=== PATIENT | female | born 1960 | race Caucasian/White ===

== ENCOUNTER 2018-05-10 00:27 | Inpatient (IN) ==
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
[2018-05-10 02:32] LABS: Basophils % 0.2 %; Eosinophils % 0.1 %; Hematocrit 34.6 % (35.3-44.9); Immature Granulocytes % 0.6 % (0-4); Lymphocytes # 1.5 K/mcL (0.6-4.6); Lymphocytes % 10.6 %; Mean Corpuscular HGB Conc 34.7 g/dL (31.6-35.5); Mean Corpuscular Hemoglobin 31.7 pg (28.0-33.3); Mean Corpuscular Volume 91.3 fL (83.0-100.0); Mean Platelet Volume 9.3 fL (9.4-12.4); Monocytes # 0.5 K/mcL (0.0-1.3); Monocytes % 3.3 %; Neutrophils # 12.3 K/mcL (1.6-8.9); Platelet Count 277 K/mcL (140-400); Red Blood Count 3.79 M/mcL (3.82-4.97); Red Cell Distribution Width 13.4 % (11.5-14.5); Segmented Neutrophils % 85.2 %
[2018-05-10 02:49] LABS: BUN/Creatinine Ratio 21 (6-26); Blood Urea Nitrogen 15 mg/dL (6-20); Calcium 8.3 mg/dL (8.6-10.3); Carbon Dioxide 21 mEq/L (23-29); Chloride 94 mEq/L (98-107); Glucose 130 mg/dL (70-105); Osmolality,Calculated 261 (280-300); Potassium 4.4 mEq/L (3.5-5.1); Sodium 124 mEq/L (136-145); eGFR For African Americans > 60 (> 60); eGFR For Non-African Americans > 60 (> 60)
[2018-05-10] MEDS ORDERED: 0.9 % Sodium Chloride 1,000 ML IVC ONE (04:52)
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
--- NOTE | 2018-05-10 06:55 | Orthopedics Progress Note ---
Date of Encounter: 05/10/18 Time of Encounter: 06:54 Subjective Interval history: Patient seen this morning for injury to left shoulder. I reviewed the x-rays show a displaced comminuted fracture left proximal humerus. Recommendation is for evaluation with CT scan with most likely plan for open reduction internal fixation. I discussed this with the family discussed the surgical plan if CAT scan confirms, discussed risk benefits as well as recovery. Objective Vital signs: Vital Signs Temp Pulse Resp BP Pulse Ox 05/10/18 05:52 98.8 F 95 16 136/85 97 05/10/18 05:49 84 12 115/70 100 05/10/18 03:34 20 122/80 05/10/18 03:17 91 21 124/89 - Labs CBC & BMP: 05/10/18 02:20 05/10/18 02:20 Labs: Abnormal lab results WBC 14.5 K/mcL (4.3-11.1) H 05/10/18 02:20 RBC 3.79 M/mcL (3.82-4.97) L 05/10/18 02:20 Hct 34.6 % (35.3-44.9) L 05/10/18 02:20 MPV 9.3 fL (9.4-12.4) L 05/10/18 02:20 Neutrophils # 12.3 K/mcL (1.6-8.9) H 05/10/18 02:20 Sodium 124 mEq/L (136-145) L 05/10/18 02:20 Chloride 94 mEq/L (98-107) L 05/10/18 02:20 Carbon Dioxide 21 mEq/L (23-29) L 05/10/18 02:20 Glucose 130 mg/dL (70-105) H 05/10/18 02:20 Calculated Osmolality 261 (280-300) L 05/10/18 02:20 Calcium 8.3 mg/dL (8.6-10.3) L 05/10/18 02:20 Consult Discharge Plan - Plan Referrals: Tye Delvalle MD [Primary Care Provider] -
[2018-05-10] MEDS ORDERED: Acetaminophen 325 MG TABLET PO PRN (07:44)
[2018-05-10] MEDS ORDERED: OXYCODONE Oral CONC 10 MG/0.5 ML ORAL.SYG SL PRN (07:44)
[2018-05-10] MEDS ORDERED: Naloxone 0.4 MG/ML INJ IVP PRN (07:44)
[2018-05-10] MEDS ORDERED: *HR* Dextrose 50 % in Water (Syg) 50 ML SYRINGE IVP PRN (07:45)
[2018-05-10] MEDS ORDERED: Dextrose Gel 15 GM/37.5 ML TUBE PO PRN ×2 (07:45)
[2018-05-10] MEDS ORDERED: D5% in Water 1,000 ML IVC PRN (07:45)
[2018-05-10] MEDS ORDERED: 0.9 % Sodium Chloride 1,000 ML IVC SCH (08:00)
[2018-05-10] MEDS: OXYCODONE Oral CONC 10 MG/0.5 ML ORAL.SYG SL PRN ×3 (08:30→21:42)
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
[2018-05-10] MEDS ORDERED: ALPRAZolam 0.5 MG TABLET PO PRN (08:43)
[2018-05-10] MEDS ORDERED: ALPRAZolam 0.5 MG TABLET PO SCH (09:00)
[2018-05-10 09:50] LABS: Estimated Average Glucose 134 mg/dl; Hemoglobin A1C 6.3 %
[2018-05-10] MEDS: Insulin LISPRO 300 UNITS/3 ML VIAL SQ SCH ×2 (11:32→18:18)
[2018-05-10] MEDS: *HR* FentaNYL (PF) 100 MCG/2 ML VIAL IVP PRN ×2 (11:37→17:45)
[2018-05-10] MEDS: *HR* Heparin 5,000 UNIT/ML VIAL SQ SCH (17:44)
[2018-05-10] MEDS: Ondansetron 4 MG/2 ML VIAL IVP PRN (17:44)
--- NOTE | 2018-05-10 20:23 | Anesthesia Evaluation PreOp ---
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: Other (Anxiety, chronic back pain) Other Medical History: Diabetes Type II (None after weight loss, currently slightly elevated, probably 2/2 stress, HbA1c 6.3.), Thyroid, GERD (Significant , controlled) Anesthesia History: No Prior Anesthetic Complications, Past Anesthesia ( Bariatric surgery, partial hysterectomy, lumbar discectomy, lumbar fusion, ankle sx) Alcohol Use: none Drug use: none Medications and Allergies Amitriptyline [Elavil] 100 mg PO HS 11/03/17 [History] Atorvastatin Calcium [Lipitor] 20 mg PO DAILY 11/03/17 [History] Levothyroxine [Synthroid] [place] [address]/03/17 [History] Pantoprazole Sodium [Protonix] 40 mg PO DAILY 11/03/17 [History] ALPRAZolam [Xanax 1 MG Tablet] 1 mg PO TID PRN 05/10/18 [History] Zolpidem Tartrate [Ambien Cr] 12.5 mg PO HS PRN 05/10/18 [History] 3 Allergy/AdvReac Type Severity Reaction Status Date / Time No Known Allergies Allergy Verified 11/03/17 07:02 - Meds/Allergy Pre-op Review Medications Reviewed: Yes Allergies Reviewed: Yes Beta Blockers on Current Med List: No Anesthesia Results - Labs 05/10/18 02:20 05/10/18 12:02 Laboratory Tests 05/10/18 05/10/18 02:20 02:20 Potassium 4.4 Chloride 94 L Carbon Dioxide 21 L Creatinine 0.73 Glucose 130 H Hemoglobin A1c 6.3 H Calcium 8.3 L Anesthesia Exam Height 1.75 m Weight 82 kg BMI 27 Vital Signs/O2 Sat/Glucose, Most Recent Temp Pulse Resp BP Pulse Ox 98.8 F 110 18 145/84 95 05/10/18 19:32 05/10/18 19:32 05/10/18 19:32 05/10/18 19:32 05/10/18 19:32 Blood Glucose* 94 NPO (# of Hours): Advised NPO after MN - HEENT Mallampati: I Teeth: Normal Oral Opening: Greater than 3 - TUNNEL WORKER LOC: Oriented TUNNEL WORKER Motor: Normal RUE, Normal LUE, Normal RLE, Normal LLE, Normal Face - Cardiac Rhythm: Regular - Pulmonary Breath Sounds: bilateral Clear Anesthesia Assess/Plan ASA Score: 3 Modified Kush Scale for Level of Consciousness: Cooperative, oriented, and tranquil Anesthetic Plan: General, Regional (For post operative pain control) Monitoring Plan: Standard Monitors Recovery Plan: PACU Anes Supervising Prov Stmt: Patient informed and consented. Risks, benefits, and alternatives discussed. Patient wishes to proceed.
[2018-05-10] MEDS ORDERED: LIPITOR PO SCH (21:00)
[2018-05-10] MEDS ORDERED: Insulin LISPRO 300 UNITS/3 ML VIAL SQ SCH (21:00)
--- NOTE | 2018-05-10 21:33 | Event Note ---
Date of Encounter: 05/10/18 Time of Encounter: 21:31 Patient was seen, comfortable in bed. CT scan has been reviewed by . Recommending surgery - plan discussed with patient. Surgical consent reviewed and signed. Plan: Proximal humerus ORIF - 05/11 AM. NPO after midnight. Continue in sling. Continue with pain control. Appt made and faxed to [facility]. Patient would like to stay
[2018-05-11] MEDS: Ondansetron 4 MG/2 ML VIAL IVP PRN (00:15)
[2018-05-11] MEDS: *HR* FentaNYL (PF) 100 MCG/2 ML VIAL IVP PRN (00:15)
[2018-05-11] MEDS: Insulin LISPRO 300 UNITS/3 ML VIAL SQ SCH ×4 (00:29→16:23)
[2018-05-11 01:40] LABS: Basophils % 0.3 %; Eosinophils % 0.5 %; Hematocrit 37.1 % (35.3-44.9); Hemoglobin 12.6 g/dL (11.5-15.4); Immature Granulocytes % 0.3 % (0-4); Lymphocytes # 1.4 K/mcL (0.6-4.6); Lymphocytes % 24.4 %; Mean Corpuscular Volume 91.4 fL (83.0-100.0); Mean Platelet Volume 10.5 fL (9.4-12.4); Monocytes # 0.7 K/mcL (0.0-1.3); Monocytes % 11.7 %; Platelet Count 199 K/mcL (140-400); Red Blood Count 4.06 M/mcL (3.82-4.97); Red Cell Distribution Width 13.6 % (11.5-14.5); Segmented Neutrophils % 62.8 %
[2018-05-11 01:42] LABS: Neutrophils # 3.6 K/mcL (1.6-8.9)
[2018-05-11 01:57] LABS: BUN/Creatinine Ratio 16 (6-26); Blood Urea Nitrogen 13 mg/dL (6-20); Calcium 9.1 mg/dL (8.6-10.3); Carbon Dioxide 22 mEq/L (23-29); Chloride 99 mEq/L (98-107); Glucose 107 mg/dL (70-105); Osmolality,Calculated 271 (280-300); Potassium 4.3 mEq/L (3.5-5.1); Sodium 130 mEq/L (136-145); eGFR For African Americans > 60 (> 60); eGFR For Non-African Americans > 60 (> 60)
[2018-05-11] MEDS: *HR* Heparin 5,000 UNIT/ML VIAL SQ SCH ×2 (04:32→16:33)
[2018-05-11] MEDS: OXYCODONE Oral CONC 10 MG/0.5 ML ORAL.SYG SL PRN ×2 (05:54→20:48)
--- NOTE | 2018-05-11 06:14 | Orthopedics Progress Note ---
Date of Encounter: 05/11/18 Time of Encounter: 06:13 Subjective Interval history: Patient seen this morning CT scan results reviewed plan for open reduction internal fixation reviewed all questions answered. We reviewed the risks and benefits as well as recovery. All questions were answered. The patient agreed to this treatment plan and appeared to understand the plan is reviewed. Objective Vital signs: Vital Signs Temp Pulse Resp BP Pulse Ox 05/11/18 03:08 98.7 F 95 14 98/65 95 05/11/18 00:09 98.8 F 94 18 117/79 97 05/10/18 19:32 98.8 F 110 18 145/84 95 05/10/18 15:57 99.0 F 99 18 114/71 99 05/10/18 10:37 98.6 F 79 18 136/75 98 05/10/18 08:42 100 05/10/18 07:04 97.7 F 63 15 134/78 100 Intake and Output 05/10/18 05/10/18 05/11/18 15:59 23:59 07:59 Intake Total 490 / 490 610 / 610 0 / 0 Output Total 0 / 0 Balance 490 / 490 610 / 610 0 / 0 Intake: Oral 490 / 490 610 / 610 0 / 0 Output: Urine 0 / 0 Other: Meal Lunch Dinner Percent of Meal Consumed 30% 30% # Voids 1 1 1 Weight 82.1 kg Blood Glucose* 94 70 118 Patient Weight 05/11/18 23:59 Weight 82.1 kg - Labs CBC & BMP: 05/11/18 00:52 05/11/18 00:52 Labs: Abnormal lab results Sodium 130 mEq/L (136-145) L 05/11/18 00:52 Carbon Dioxide 22 mEq/L (23-29) L 05/11/18 00:52 Glucose 107 mg/dL (70-105) H 05/11/18 00:52 POC Glucose 167 mg/dL (70-99) H 05/10/18 17:46 Hemoglobin A1c 6.3 % (-5.6) H 05/10/18 02:20 Calculated Osmolality 271 (280-300) L 05/11/18 00:52 Consult Discharge Plan - Plan Referrals: Tye Delvalle MD [Primary Care Provider] - Prescriptions: OxyCODONE Immed Rel [Roxicodone 5 MG] 5 mg PO Q6HR PRN 7 Days #28 tablet PRN Reason: Severe Pain
[2018-05-11] MEDS ORDERED: Ondansetron 4 MG/2 ML VIAL ONE (07:05)
[2018-05-11] MEDS ORDERED: Lidocaine -MPF 4% 5 ML AMPUL ONE (07:05)
[2018-05-11] MEDS ORDERED: Dexamethasone 4 MG/ML VIAL ONE (07:05)
[2018-05-11] MEDS ORDERED: *HR* Succinylcholine 200 MG/10 ML VIAL IVP ONE (07:05)
[2018-05-11] MEDS ORDERED: *HR* FentaNYL (PF) 100 MCG/2 ML VIAL ONE ×2 (07:05→07:23)
[2018-05-11] MEDS ORDERED: *HR* Propofol 200 MG/20 ML VIAL IVP ONE (07:05)
[2018-05-11] MEDS ORDERED: Lidocaine -MPF 2% 2 ML VIAL ONE ×2 (07:05)
[2018-05-11] MEDS ORDERED: *HR* Midazolam HCl 2 MG/2 ML VIAL ONE ×2 (07:05→07:23)
[2018-05-11] MEDS ORDERED: Bupivacaine/Clonidine Syringe 1 EACH SYRINGE ONE (07:08)
[2018-05-11] MEDS ORDERED: ROPIVACAINE HCL/PF 0.5% 30 ML VIAL ONE (07:08)
[2018-05-11] MEDS ORDERED: Albuterol 2.5 MG/3 ML NEBULIZER IH ONE (07:35)
[2018-05-11] MEDS ORDERED: Naloxone 0.4 MG/ML INJ IVP PRN ×3 (07:35→09:31)
[2018-05-11] MEDS ORDERED: Ondansetron 4 MG/2 ML VIAL IVP ONE ×2 (07:35→09:31)
[2018-05-11] MEDS ORDERED: *HR* HYDROmorphone 2 MG TABLET PO PRN ×2 (07:35→09:31)
[2018-05-11] MEDS ORDERED: *HR* OxyCODONE Immed Rel 5 MG TABLET PO PRN (07:35)
[2018-05-11] MEDS ORDERED: *HR* Meperidine 25 MG/ML SYRINGE IVP PRN (07:35)
[2018-05-11] MEDS ORDERED: *HR* Promethazine 25 MG/ML VIAL IVP PRN (07:35)
--- NOTE | 2018-05-11 07:35 | Anesthesia Procedures ---
Date of Encounter: 05/11/18 Time of Encounter: :33 Procedures: Anesthesia - Nerve Block Procedure Date: 05/11/18 Time: 07:33 Surgical Procedure: left proximal humerus orif Checklist: Correct Patient Identifier, Correct procedure, History checked Correct side: Left Blood Thinner: No Monitor Applied: EKG, BP, Pulse Oximetry Supplemental Oxygen via Nasal Cannula (L/min): 2 Sedation: Versed (mg): 4 Sedation: Fentanyl (mcg): 200 Indication: Post Op Analgesia (request per surgeon) Pre-op Neuro Deficits: No Block Type: Supraclavicular, Other (icb) Catheter placed: No Sterile Technique: Yes Ultrasound used: Yes Anatomy identified: Yes Visual spread of Local: Yes Neuro Stimulation: No Blood on Needle Aspiration: No Smooth Injection of Local: Yes Pain with Injection of Local: No Prep: Chlorhexadine Needle: 22 x 50 mm Stimuplex Local: 0.25% Bupivicaine w/Clonidine 20 mcg/cc (for icb), Ropivacaine (0.5%) Volume (cc): 30 Number of Attempts: 1 Complications: None/effective block Vitals: Vital Signs/O2 Sat/Glucose, Most Current Pulse Resp BP Pulse Ox 05/11/18 07:32 105 16 109/85 97 05/11/18 07:15 101 18 107/84 97 Comments: pt tolerated procedure well. no complications. vss.
[2018-05-11] MEDS ORDERED: Ringers Solution, Lactated 1,000 ML IVC SCH ×3 (07:45→09:31)
[2018-05-11] MEDS ORDERED: *HR* PHENYLEPHRINE 1,000 MCG/10 ML SYRINGE IVP ONE ×2 (08:01→08:19)
--- NOTE | 2018-05-11 08:43 | Orthopedic Operative Note ---
Date of procedure: 05/11/18 Pre-op diagnosis: Displaced left proximal humerus fracture Post-op diagnosis: same Procedure: Procedure: Left open reduction internal fixation proximal humerus Estimated blood loss: 50 cc Hardware: Arthrex 3 hole proximal humeral locking plate, 1 3.5 cortical screws , 7 3.5 Locking screws, one Arthrex cerclage fiber tape Procedural Notes: Displaced comminuted fracture Operative procedure: The patient was brought to the operating room and placed on the operating room table. After general anesthesia was administered the operative arm was prepped and draped in the sterile surgical fashion The patient received IV antibiotics prior to skin incision. A standard extended deltopectoral approach was made to the humerus, the incision is made to the skin and subcutaneous tissue. Hemostasis was obtained with Bovie cautery. Using careful blunt dissection the deltopectoral interval was developed, exposing the fracture site. Using fluoroscopic assistance a Arthrex 3 hole proximal humeral locking plate was approximated to the anterior lateral surface was fixed distally in compression with one 3.5 cortical screw. It was fixed proximally with 5 3.5 locking screws. Fixation was completed with distal fixation with 2 3.5 locking screws. Fixation was augmented with one Arthrex cerclage fiber tape. Position of the hardware as well as fracture reduction found to be acceptable on fluoroscopic exam evaluation. The wound was irrigated the deltopectoral closed with a running #1 PDS suture case tissues irrigated and closed deep with 0 PDS suture superficially with 0 PDS suture was closed with Dermabond patient was sterile dressing and brace. The patient was extubated, and then transferred to the recovery room in stable condition. Anesthesia: GETA Surgeon: Anthony Francis Was there an multimedia assistant present: Yes Esl Instructional Assistant: Macy Fields Estimated blood loss (cc): 50 Condition: stable Disposition: PACU
--- NOTE | 2018-05-11 09:27 | Anesthesia Evaluation Post Op ---
Date of Encounter: 05/11/18 Time of Encounter: 09:26 - Vital Signs Vital Signs: Vital Signs/O2 Sat/Glucose, Most Recent Temp Pulse Resp BP Pulse Ox 99.1 F 96 18 110/72 96 05/11/18 09:00 05/11/18 09:10 05/11/18 09:10 05/11/18 09:10 05/11/18 09:10 Blood Glucose* 113 - Lungs Lungs: Clear Ascult./Percussion - Airway Airway: Non-obstructed - Cardiovascular Regular Rate - Mental Status Mental Status: Alert & Oriented, Answers Appropriately - Pain Pain Scale: 0 Pain Scale used: Numeric (1 - 10) - Nausea Vomiting Nausea Vomiting: Not Present - Hydration Hydration: NPO - Discharge PostOp Status: Transfer Patient to floor
[2018-05-11] MEDS ORDERED: OXYCODONE Oral CONC 10 MG/0.5 ML ORAL.SYG SL PRN (09:31)
[2018-05-11] MEDS ORDERED: 0.9 % Sodium Chloride 1,000 ML IVC SCH (09:31)
[2018-05-11] MEDS ORDERED: Dextrose Gel 15 GM/37.5 ML TUBE PO PRN ×2 (09:31)
[2018-05-11] MEDS ORDERED: D5% in Water 1,000 ML IVC PRN (09:31)
[2018-05-11] MEDS ORDERED: MOM Conc 10 ML UD.LIQ PO PRN (09:31)
[2018-05-11] MEDS ORDERED: Acetaminophen 325 MG TABLET PO PRN (09:31)
[2018-05-11] MEDS ORDERED: Temazepam 15 MG CAPSULE PO PRN (09:31)
[2018-05-11] MEDS ORDERED: Ondansetron 4 MG/2 ML VIAL IVP PRN ×2 (09:31)
[2018-05-11] MEDS ORDERED: *HR* Dextrose 50 % in Water (Syg) 50 ML SYRINGE IVP PRN (09:31)
[2018-05-11] MEDS ORDERED: *HR* FentaNYL (PF) 100 MCG/2 ML VIAL IVP PRN (09:31)
[2018-05-11] MEDS ORDERED: ALPRAZolam 0.5 MG TABLET PO PRN (09:31)
[2018-05-11] MEDS ORDERED: Sennosides 8.6 MG TABLET PO PRN (09:31)
[2018-05-11] MEDS ORDERED: Insulin LISPRO 300 UNITS/3 ML VIAL SQ SCH ×2 (12:00→21:00)
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
[2018-05-12 01:35] LABS: Hemoglobin 11.1 g/dL (11.5-15.4)
[2018-05-12 01:50] LABS: BUN/Creatinine Ratio 17 (6-26); Blood Urea Nitrogen 14 mg/dL (6-20); Calcium 9.5 mg/dL (8.6-10.3); Carbon Dioxide 25 mEq/L (23-29); Chloride 101 mEq/L (98-107); Glucose 126 mg/dL (70-105); Magnesium 2.2 mg/dL (1.6-2.6); Osmolality,Calculated 280 (280-300); Potassium 4.4 mEq/L (3.5-5.1); Sodium 134 mEq/L (136-145); eGFR For African Americans > 60 (> 60); eGFR For Non-African Americans > 60 (> 60)
[2018-05-12] MEDS: OXYCODONE Oral CONC 10 MG/0.5 ML ORAL.SYG SL PRN ×2 (01:58→06:05)
[2018-05-12] MEDS: *HR* Heparin 5,000 UNIT/ML VIAL SQ SCH (06:05)
[2018-05-12] MEDS: Insulin LISPRO 300 UNITS/3 ML VIAL SQ SCH ×2 (07:47→12:05)
[2018-05-12] MEDS: *HR* OxyCODONE Immed Rel 5 MG TABLET PO PRN ×2 (07:48→11:53)
--- NOTE | 2018-05-12 08:28 | Orthopedics Progress Note ---
Date of Encounter: 05/12/18 Time of Encounter: 08:27 Subjective Interval history: Patient was seen this morning doing definitely agitated, increased pain since block wore off. Afebrile vital signs stable. Operative extremity: Neurovascularly intact Dressing clean dry and intact patient with some swelling no erythema Calves nontender Assessment and plan: Continue with postoperative care will consult anesthesia her possible repeat nerve block, patient understands that this is a short lived pain reliever, prescribed Xanax 0.25 mg to treat anxiety. . Objective Vital signs: Vital Signs Temp Pulse Resp BP Pulse Ox 05/12/18 08:12 98 05/12/18 07:26 98.4 F 91 17 148/82 98 05/12/18 02:56 98.4 F 93 20 136/90 97 05/11/18 23:00 98.5 F 110 20 146/77 98 05/11/18 19:43 98.8 F 66 18 104/71 97 05/11/18 15:45 97.7 F 90 19 97/65 95 05/11/18 13:36 97.7 F 109 21 102/71 95 05/11/18 11:30 98.3 F 91 21 99/68 96 05/11/18 10:35 98.4 F 95 16 110/72 96 05/11/18 10:00 96 16 106/73 97 05/11/18 09:30 97.9 F 93 18 101/68 95 05/11/18 09:20 97 16 108/78 96 05/11/18 09:10 96 18 110/72 96 05/11/18 09:00 99.1 F 99 18 105/71 97 Intake and Output 05/11/18 05/12/18 05/12/18 23:59 07:59 15:59 Intake Total 900 / 900 700 / 700 Output Total 0 / 0 Balance 900 / 900 700 / 700 Intake: IV Fluids 100 / 100 Ancef 2,000 MG In 0.9 % Sodium 100 / 100 Chloride 100 ML @ 200 mls/hr IVPB Q8HR L[facility] Rx#:[id number] Oral 800 / 800 700 / 700 Output: Urine 0 / 0 Other: # Voids 1 2 Weight 81.8 kg Blood Glucose* 104 93 Patient Weight 05/12/18 23:59 Weight 81.8 kg - Labs CBC & BMP: 05/12/18 01:11 05/12/18 01:11 Labs: Abnormal lab results Hgb 11.1 g/dL (11.5-15.4) L D 05/12/18 01:11 Hct 33.0 % (35.3-44.9) L 05/12/18 01:11 Sodium 134 mEq/L (136-145) L 05/12/18 01:11 Glucose 126 mg/dL (70-105) H 05/12/18 01:11 POC Glucose 104 mg/dL (70-99) H 05/11/18 20:45 Hemoglobin A1c 6.3 % (-5.6) H 05/10/18 02:20 - VTE Documentation of Mechanical Device: Venous foot pump, device Consult Discharge Plan - Plan Referrals: Tye Delvalle MD [Primary Care Provider] -
[2018-05-12 11:39] VITALS: BP 131/75
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
== END 2018-05-12 15:10 | disposition home or self-care (01) | DRG 493 ==
LOC: 3NENU 00:27 → EMEROO 00:27 → 3NENU 05:49 → SUATTDRO 05-11 06:14
PROVIDERS: ADMIT Internal Medicine Nephrology; ATTEND Internal Medicine

== ENCOUNTER 2021-06-06 07:04 | Observation (INO) ==
[2021-06-06] MEDS ORDERED: Ondansetron 4 MG/2 ML VIAL IVP ONE (08:26)
[2021-06-06] MEDS ORDERED: *HR* FentaNYL (PF) 100 MCG/2 ML VIAL IVP STA (08:26)
[2021-06-06] MEDS ORDERED: Ondansetron 4 MG/2 ML VIAL IVP PRN ×2 (08:47→20:12)
[2021-06-06] MEDS ORDERED: Melatonin 3 MG TABLET PO PRN ×2 (08:47→20:12)
[2021-06-06] MEDS ORDERED: Naloxone 0.4 MG/ML INJ IVP PRN ×2 (08:47→20:12)
[2021-06-06] MEDS ORDERED: Dextrose Gel 15 GM/37.5 ML TUBE PO PRN ×4 (08:53→20:12)
[2021-06-06] MEDS ORDERED: D5% in Water 1,000 ML IVC PRN ×2 (08:53→20:12)
[2021-06-06] MEDS ORDERED: *HR* Dextrose 50 % in Water (Vial) 50 ML VIAL IVP PRN ×2 (08:53→20:12)
[2021-06-06 08:56] LABS: Hematocrit 36.3 % (35.3-44.9); Mean Corpuscular HGB Conc 33.1 g/dL (31.6-35.5); Mean Corpuscular Hemoglobin 31.3 pg (28.0-33.3); Mean Corpuscular Volume 94.8 fL (83.0-100.0); Mean Platelet Volume 9.7 fL (9.4-12.4); Platelet Count 304 K/mcL (140-400); Red Blood Count 3.83 M/mcL (3.82-4.97); Red Cell Distribution Width 13.4 % (11.5-14.5); White Blood Count 7.8 K/mcL (4.3-11.1)
[2021-06-06] MEDS ORDERED: 0.9 % Sodium Chloride 1,000 ML IVC SCH ×2 (09:00→20:12)
[2021-06-06 09:16] LABS: BUN/Creatinine Ratio 15 (6-26); Blood Urea Nitrogen 13 mg/dL (8-23); Calcium 8.9 mg/dL (8.6-10.3); Carbon Dioxide 26 mEq/L (23-29); Chloride 98 mEq/L (98-107); Glucose 93 mg/dL (70-105); Osmolality,Calculated 274 (280-300); Potassium 3.8 mEq/L (3.5-5.1); Sodium 132 mEq/L (136-145); eGFR For African Americans > 60 (> 60); eGFR For Non-African Americans > 60 (> 60)
[2021-06-06 09:41] LABS: INR 0.9; Prothrombin Time 10.7 Seconds (9.4-12.1)
[2021-06-06] MEDS ORDERED: Insulin LISPRO 300 UNITS/3 ML VIAL SUBQ SCH (12:00)
[2021-06-06] MEDS ORDERED: *HR* OxyCODONE Immed Rel 5 MG TABLET PO PRN ×2 (14:41→20:12)
[2021-06-06] MEDS ORDERED: *HR* FentaNYL (PF) 100 MCG/2 ML VIAL IVP PRN ×2 (14:41→20:12)
[2021-06-06] MEDS ORDERED: Lidocaine/EPI 1:200k 1% PF 10 ML VIAL ONE (15:55)
[2021-06-06] MEDS ORDERED: Lidocaine/EPI 1:100k 1% 50 ML VIAL ONE (15:56)
[2021-06-06] MEDS ORDERED: *HR* FentaNYL (PF) 100 MCG/2 ML VIAL ONE ×2 (15:59→16:54)
[2021-06-06] MEDS ORDERED: *HR* Propofol 200 MG/20 ML VIAL IVP ONE (16:00)
[2021-06-06] MEDS ORDERED: *HR* Midazolam HCl 2 MG/2 ML VIAL ONE (16:00)
[2021-06-06] MEDS ORDERED: Ondansetron 4 MG/2 ML VIAL ONE (16:03)
[2021-06-06] MEDS ORDERED: Lidocaine -MPF 4% 5 ML AMPUL ONE (16:03)
[2021-06-06] MEDS ORDERED: *HR* Succinylcholine 200 MG/10 ML VIAL IVP ONE (16:03)
[2021-06-06] MEDS ORDERED: Lidocaine -MPF 2% 2 ML VIAL ONE (16:03)
[2021-06-06] MEDS ORDERED: ceFAZolin 2,000 MG in Water for inj. (sterile) 20 ML IVP ONE (16:23)
[2021-06-06] MEDS ORDERED: *HR* Rocuronium Bromide 50 MG/5 ML VIAL ONE (16:26)
[2021-06-06] MEDS ORDERED: Acetaminophen IV 1,000 MG/100 ML BAG IVPB ONE (17:04)
[2021-06-06] MEDS ORDERED: *HR* HYDROMORPHONE 2 MG/ML VIAL ONE (17:20)
[2021-06-06] MEDS: *HR* HYDROmorphone PF 0.5 MG/0.5 ML SYRINGE IVP PRN ×2 (17:49→18:04)
[2021-06-06] MEDS ORDERED: CeFAZolin Syr 2,000MG/20 ML 2,000 MG/20 ML SYRINGE IVPB ONE (19:00)
[2021-06-06] MEDS ORDERED: Ringers Solution, Lactated 1,000 ML ONE (19:22)
[2021-06-06] MEDS ORDERED: *HR* HYDROmorphone PF 0.5 MG/0.5 ML SYRINGE IVP PRN (20:12)
[2021-06-06] MEDS: ceFAZolin 2,000 MG in 0.9 % Sodium Chloride 100 ML IVPB SCH (23:34)
[2021-06-07] MEDS: Insulin LISPRO 300 UNITS/3 ML VIAL SUBQ SCH ×3 (00:36→12:46)
[2021-06-07 05:24] LABS: Hematocrit 34.5 % (35.3-44.9); Hemoglobin 11.7 g/dL (11.5-15.4); Mean Corpuscular HGB Conc 33.9 g/dL (31.6-35.5); Mean Corpuscular Volume 94.3 fL (83.0-100.0); Mean Platelet Volume 10.1 fL (9.4-12.4); Platelet Count 289 K/mcL (140-400); Red Blood Count 3.66 M/mcL (3.82-4.97); Red Cell Distribution Width 13.4 % (11.5-14.5)
[2021-06-07 05:45] LABS: BUN/Creatinine Ratio 15 (6-26); Blood Urea Nitrogen 13 mg/dL (8-23); Calcium 8.7 mg/dL (8.6-10.3); Carbon Dioxide 26 mEq/L (23-29); Chloride 100 mEq/L (98-107); Glucose 125 mg/dL (70-105); Osmolality,Calculated 278 (280-300); Potassium 4.2 mEq/L (3.5-5.1); Sodium 133 mEq/L (136-145); eGFR For African Americans > 60 (> 60); eGFR For Non-African Americans > 60 (> 60)
[2021-06-07] MEDS ORDERED: ALPRAZolam 1 MG TABLET PO PRN (06:00)
[2021-06-07 07:53] VITALS: O2SAT 99
[2021-06-07 10:29] VITALS: BP 147/79; PULSE 92; TEMP 98.3
[2021-06-07] MEDS: ceFAZolin 2,000 MG in 0.9 % Sodium Chloride 100 ML IVPB SCH (11:24)
[2021-06-07] MEDS ORDERED: Ketorolac 30 MG/ML VIAL IVP ONE (15:24)
[2021-06-08] MEDS ORDERED: atenoloL 50 MG TABLET PO SCH (09:00)
[2021-06-08] MEDS ORDERED: valACYclovir 500 MG TABLET PO SCH (09:00)
== END 2021-06-07 18:12 | disposition home or self-care (01) ==
LOC: CDU 07:04 → EMEROOARM 07:04 → SUATTDRO 08:46 → CDU 10:24 → 3NENU 13:53
PROVIDERS: ADMIT Family Medicine; ATTEND Internal Medicine

== ENCOUNTER 2021-08-02 23:52 | Observation (INO) ==
[2021-08-02] MEDS ORDERED: 0.9 % Sodium Chloride 1,000 ML IVC ONE (23:58)
[2021-08-03] MEDS ORDERED: D5% in Lactated Ringers 1,000 ML IVC SCH (00:15)
[2021-08-03 00:19] LABS: VBG HCO3 23 mEq/L (21-27); VBG PCO2 48 mmHg (41-51); VBG PH 7.28 pH Units (7.32-7.42); VBG PO2 64 mmHg (25-50)
[2021-08-03 00:29] LABS: Bacteria,Urine Few per hpf (None-Few); Bilirubin,Urine Negative (Negative); Blood,Urine Negative (Negative); Clarity,Urine Clear (Clear); Color,Urine Colorless (Yellow); Glucose,Urine (UA) Normal (Normal); Ketones,Urine Negative (Negative); Leukocyte Esterase,Urine Negative (Negative); Nitrite,Urine Positive (Negative); Protein,Urine Negative (Neg-Trace); RBC,Urine 0-3 per hpf (0-3); Specific Gravity,Urine 1.005 (1.010-1.025); Squamous Epithelial Cell,Urine Few per hpf (None-Few); Urobilinogen,Urine Normal (Normal); WBC,Urine 0-3 per hpf (0-3)
[2021-08-03 00:29] LABS: Alanine Aminotransferase 16 Units/L (7-52); Albumin 4.2 g/dL (3.5-5.7); Albumin/Globulin Ratio 1.4 (1.1-2.2); Alkaline Phosphatase 121 Units/L (34-104); Aspartate Amino Transferase 21 Units/L (13-39); BUN/Creatinine Ratio 19 (6-26); Bilirubin,Direct 0.1 mg/dL (0.0-0.2); Bilirubin,Indirect 0.3 mg/dL (0.0-1.0); Bilirubin,Total 0.4 mg/dL (0.3-1.0); Blood Urea Nitrogen 16 mg/dL (8-23); Calcium 8.5 mg/dL (8.6-10.3); Carbon Dioxide 19 mEq/L (23-29); Chloride 99 mEq/L (98-107); Ethanol 204 mg/dL (Less than 10); Globulin 3.1 g/dL (2.4-3.5); Glucose 90 mg/dL (70-105); Osmolality,Calculated 271 (280-300); Potassium 3.7 mEq/L (3.5-5.1); Sodium 130 mEq/L (136-145); Total Protein 7.3 g/dL (6.4-8.9); eGFR For African Americans > 60 (> 60); eGFR For Non-African Americans > 60 (> 60)
[2021-08-03 00:40] LABS: Amphetamine Screen,Urine Negative ng/mL (Cutoff=1000); Barbiturate Screen,Urine Negative ng/mL (Cutoff=200); Benzodiazepines Screen,Urine Positive ng/mL (Cutoff=200); Cannabinoid Screen,Urine Negative ng/mL (Cutoff = 50); Cocaine Screen,Urine Negative ng/mL (Cutoff= 300); Opiate Screen,Urine Negative ng/mL (Cutoff=300); Phencyclidine Screen,Urine Negative ng/mL (Cutoff=25)
[2021-08-03 00:41] LABS: Basophils # 0.1 K/mcL (0.0-0.2); Basophils % 0.6 %; Eosinophils # 0.2 K/mcL (0.0-0.6); Hematocrit 37.2 % (35.3-44.9); Hemoglobin 12.5 g/dL (11.5-15.4); Immature Granulocytes % 0.3 % (0-4); Lymphocytes # 3.2 K/mcL (0.6-4.6); Lymphocytes % 40.3 %; Mean Corpuscular HGB Conc 33.6 g/dL (31.6-35.5); Mean Corpuscular Hemoglobin 31.7 pg (28.0-33.3); Mean Corpuscular Volume 94.4 fL (83.0-100.0); Mean Platelet Volume 9.7 fL (9.4-12.4); Monocytes # 0.6 K/mcL (0.0-1.3); Monocytes % 7.7 %; Neutrophils # 3.9 K/mcL (1.6-8.9); Platelet Count 293 K/mcL (140-400); Red Blood Count 3.94 M/mcL (3.82-4.97); Red Cell Distribution Width 12.9 % (11.5-14.5); Segmented Neutrophils % 49.1 %; White Blood Count 7.9 K/mcL (4.3-11.1)
[2021-08-03 00:55] LABS: Troponin I < 0.03 ng/mL (< 0.04)
[2021-08-03 01:03] LABS: Influenza A PCR Negative (Negative); Influenza B PCR Negative (Negative); Resp. Syncytial Virus PCR Negative (Negative)
[2021-08-03 01:04] LABS: SARS-CoV-2 by PCR (In House) Negative (Negative)
[2021-08-03 01:09] LABS: Thyroid Stimulating Hormone 11.501 mcIU/mL (0.340-5.600)
[2021-08-03 01:39] LABS: Magnesium 2.2 mg/dL (1.6-2.6)
[2021-08-03] MEDS ORDERED: Levothyroxine Sodium 200 MCG VIAL IVP ONE (02:07)
[2021-08-03] MEDS ORDERED: cefTRIAXone 1,000 MG in Water for inj. (sterile) 10 ML IVP ONE (02:07)
[2021-08-03] MEDS ORDERED: Hydrocortisone Sodium Succ 100 MG/2 ML VIAL IVP ONE (02:08)
[2021-08-03] MEDS ORDERED: Liothyronine Sodium 10 MCG/ML IVP ONE (02:09)
[2021-08-03] MEDS ORDERED: Ondansetron 4 MG/2 ML VIAL IVP PRN (04:52)
[2021-08-03] MEDS ORDERED: Melatonin 3 MG TABLET PO PRN (04:52)
[2021-08-03] MEDS ORDERED: Naloxone 0.4 MG/ML INJ IVP PRN (04:52)
[2021-08-03] MEDS ORDERED: *HR* Heparin 5,000 UNIT/ML VIAL SQ SCH (06:00)
[2021-08-03] MEDS ORDERED: 0.9 % Sodium Chloride 1,000 ML IVC SCH (06:45)
[2021-08-03 10:56] VITALS: BP 121/77; PULSE 90; TEMP 98.6; O2SAT 93
[2021-08-03] MEDS ORDERED: FLU Vac QV 21-22 (6Month+)/PF 0.5 ML SYRINGE IM ONE (14:04)
== END 2021-08-03 14:27 | disposition home or self-care (01) ==
LOC: EMEROOARM 23:52 → 3NENU 23:52 → SUATTDRO 08-03 02:22 → 3NENU 08-03 05:15
PROVIDERS: ADMIT Family Medicine; ATTEND Internal Medicine